=== PATIENT | male | born 1995 | race Caucasian/White ===

== ENCOUNTER 2019-06-06 13:30 | Emergency (ER) | payer OTHER ==
[~2019-06-06 13:30] MED LIST: Iopamidol-370 76% 500 ML 1 ML ONE
[2019-06-06] MEDS ORDERED: Tranexamic Acid 1,000 MG/10 ML VIAL ONE ×2 (14:48→16:42)
[2019-06-06 15:09] LABS: #Eosinphils 0.1 thou/uL (0.0-0.7); #Lymphocytes 1.6 thou/uL (1.20-3.40); #Monocytes 0.9 thou/uL (0.11-0.59); #Neutrophils 6.7 thou/uL (1.40-6.50); %Basophils 0.2 % (0.0-1.0); %Eosinophils 0.8 % (0.0-10.0); %Lymphocytes 17.6 % (21.0-51.0); %Monocytes 9.4 % (0.0-10.0); Mean Corpuscular HGB CONC 35.1 g/dL (32.0-36.0); Mean Corpuscular Volume 93.9 fL (78.0-98.0); Mean Platelet Volume 9.4 fL (7.4-10.4); Platelet Count 204 thou/uL (130-400); RBC Distribution Width 11.8 % (11.5-14.5); Red Blood Cell (RBC) Count 4.54 mill/uL (4.70-6.10); White Blood Cell (WBC) Count 9.3 thou/uL (4.8-10.8)
[2019-06-06 15:30] LABS: ALT (SGPT) 27 U/L (8-55); AST (SGOT) 18 U/L (5-34); Albumin 4.5 g/dL (3.5-5.0); Alkaline Phosphatase 79 U/L (40-110); Anion Gap 10 mmol/L (10-20); BUN (Urea Nitrogen) 14 mg/dL (8.9-20.6); Bilirubin, Total 0.9 mg/dL (0.2-1.2); Calc. Creatinine Clearance 0 mL/min (70-130); Calcium 9.5 mg/dL (7.8-10.44); Carbon Dioxide 31 mmol/L (22-29); Chloride 105 mmol/L (98-107); Estimated GFR-MDRD Greater than 90; Globulin 3.2 g/dL (2.4-3.5); Glucose 87 mg/dL (70-105); Potassium 4.4 mmol/L (3.5-5.1); Protein, Total 7.7 g/dL (6.0-8.3); Sodium 142 mmol/L (136-145)
--- NOTE | 2019-06-06 15:43 | CT ---
CT neck with IV contrast HISTORY: Throat pain. FINDINGS: Epiglottis as a normal appearance. No focal fluid collections or mass. Upper airway is martinez nt. No radiopaque foreign bodies evident. Well-circumscribed oval cyst within the right thyroid lobe, 1.1 cm. Nonspecific lymph nodes along eac h jugular chain. Salivary glands are symmetric. IMPRESSION: No abnormalities are demonstrated.
== END 2019-06-06 18:00 | disposition home or self-care (01) ==
LOC: ERS 13:30
DX: J35.8 Other chronic diseases of tonsils and adenoids (principal); F32.9 Major depressive disorder, single episode, unspecified; F17.200 Nicotine dependence, unspecified, uncomplicated; F41.9 Anxiety disorder, unspecified; Z71.6 Tobacco abuse counseling
CPT/HCPCS: 70491; 80053; 85025; 99406; Q9967

== ENCOUNTER 2020-01-09 08:42 | Outpatient (CLI) | payer BC, OTHER ==
[2020-01-10 12:20] LABS: SARS-CoV-2 MS2 Positive; SARS-CoV-2 N Gene Negative; SARS-CoV-2 S Gene Negative; SARS-CoV-2 orf1ab Negative
== END 2020-01-09 08:43 | disposition home or self-care (01) ==
LOC: LABBT 08:42
PROVIDERS: ATTEND Orthopaedic Surgery
DX: Z01.812 Encounter for preprocedural laboratory examination (principal); Z11.59 Encounter for screening for other viral diseases; S83.511A Sprain of anterior cruciate ligament of right knee, initial encounter
CPT/HCPCS: 87635; U0003

== ENCOUNTER 2020-01-13 07:22 | Observation (INO) | payer BC, OTHER ==
[2020-01-06 11:52] VITALS: BMI 24.3
[2020-01-13] MEDS ORDERED: Fentanyl 100 MCG/2 ML VIAL ONE ×3 (08:51→12:13)
[2020-01-13] MEDS ORDERED: Midazolam HCl 2 mg/2 ml Vial ONE (08:51)
[2020-01-13] MEDS ORDERED: Lidocaine 1% (PF) 30 ML VIAL ONE (08:51)
[2020-01-13] MEDS ORDERED: Acetaminophen 325 MG TAB PO PRN (09:46)
[2020-01-13] MEDS ORDERED: Promethazine HCl 25 MG/ML VIAL IM PRN (09:46)
[2020-01-13] MEDS ORDERED: Ondansetron PF 4 MG/2 ML Vial IVP PRN (09:46)
[2020-01-13] MEDS ORDERED: Zolpidem Tartrate 5 MG TAB PO PRN (09:46)
[2020-01-13] MEDS ORDERED: Ropivacaine 0.2% 550 ML 550 ML NERVE BLCK SCH (09:46)
[2020-01-13] MEDS ORDERED: Fentanyl 100 MCG/2 ML VIAL IV PRN (09:47)
[2020-01-13] MEDS ORDERED: diphenhydrAMINE 50 MG CAP PO PRN (10:56)
[2020-01-13] MEDS ORDERED: Methocarbamol 500 MG TAB PO PRN (10:56)
[2020-01-13] MEDS ORDERED: Milk Of Magnesia 30 ML UDCUP PO PRN (10:56)
[2020-01-13] MEDS ORDERED: traMADol HCl 50 MG TAB PO PRN (10:56)
[2020-01-13] MEDS ORDERED: Bisacodyl 10 MG SUPP PR PRN (10:56)
[2020-01-13] MEDS ORDERED: HYDROcodone/Acetaminophen 7.5/325 mg Tablet PO PRN ×2 (10:56)
[2020-01-13] MEDS ORDERED: Morphine 4 MG/ML VIAL SLOW IVP PRN (10:56)
[2020-01-13] MEDS ORDERED: Morphine 2 MG/ML VIAL SLOW IVP PRN (10:56)
[2020-01-13] MEDS ORDERED: PROPOFOL 200 MG/20 ML VIAL ONE (11:07)
[2020-01-13] MEDS ORDERED: Dexamethasone 20 MG/5 ML VIAL ONE (11:07)
[2020-01-13] MEDS ORDERED: Ondansetron PF 4 MG/2 ML Vial ONE (11:07)
[2020-01-13] MEDS ORDERED: Ketorolac Tromethamine 30 MG/ML VIAL ONE (11:07)
[2020-01-13] MEDS ORDERED: Lidocaine 1% PF 5 ML VIAL ONE (11:07)
[2020-01-13] MEDS ORDERED: Bupivacaine HCl 0.5%/Epinephrine 1:200,000/PF 30 ml Vial ONE (11:07)
[2020-01-13] MEDS ORDERED: EPHEDRINE 25 MG/5 ML SYRINGE ONE (11:07)
[2020-01-13] MEDS ORDERED: Ketorolac Tromethamine 30 MG/ML VIAL IVP SCH (12:00)
--- NOTE | 2020-01-13 14:48 | OP ---
DATE OF PROCEDURE: 01/13/2020 PREOPERATIVE DIAGNOSIS: Right knee anterior cruciate ligament tear. POSTOPERATIVE DIAGNOSIS: Right knee anterior cruciate ligament tear. PROCEDURES PERFORMED: 1. Right knee exam under anesthesia. 2. Right knee arthroscopy with arthroscopically-assisted anterior cruciate ligament reconstruction using an autologous patellar tendon graft. COMB WINDER: Jonatan Ruiz PA-C ESTIMATED BLOOD LOSS: Minimal. COMPLICATIONS: None. ANESTHESIA: The patient did have a general anesthetic as well as a preoperative block. IMPLANTS: To the right knee with a 7 x 25 metal interference screw, each bicortical screw with a smooth washer as a post on the tibia. DESCRIPTION OF PROCEDURE: He did go to recovery room in stable condition. INDICATIONS: A 24-year-old male who injured his knee approximately 1 month ago, found to have an ACL tear and at this time is presenting for reconstruction. DESCRIPTION OF PROCEDURE: After all appropriate consent forms were explained and signed, he was taken back to the operating room and at this site was given general anesthetic. Once the level of anesthesia was appropriate, exam under anesthesia confirmed a positive Wilfredo and a positive pivot shift. Tourniquet was placed on the right thigh. Leg was placed in an arthroscopic leg flanagan. The limb was then prepped and draped in standard surgical fashion. Limb was then exsanguinated, tourniquet taken to 250 mmHg. A midline incision was made with 10 blade down through skin. Bovie was used to coagulate any brisk venous bleeding. Paratenon was taken off the underlying patellar tendon and a central third patellar tendon graft was harvested using a double 10 blade, saw, and osteotome. Graft side was loosely closed with multiple Vicryl sutures. The graft was taken to the back table and made for each bone plug with size 10. The tendon was 50 mm in length. At this time, we then established our inferolateral portals. Scope was placed into the knee joint. Needle localization technique was then used to make a medial working portal. Diagnostic arthroscopy commenced in the notch. ACL was found to be torn. Remnant ACL was removed with the shaver at this time as well as some of the fat pad to help with visualization. The medial compartment was evaluated, found to be intact. Lateral compartment was found to be intact. Gutters were swept through and no loose bodies noted and the patellofemoral joint was also found to be in good condition. A notchplasty was then performed in standard fashion. We then flexed the knee up, and through the medial portal, using an [id number] guide, we placed a pin up and out the anterolateral thigh. A 10-mm reamer was used to ream it to 10-mm tunnel to the depth of 30 mm. All loose bony cartilaginous debris was removed from the knee joint. Tibial guide set at 55 degrees was then placed into the knee joint. A pin was placed up into the knee. A 10-mm reamer was then used to ream our tunnel. A red rasp and jarod were used to smooth off any rough edges on our tunnel. All loose bony cartilaginous debris was removed from the knee joint. At this time, we then went dry, flexed the knee up, and used the pin up and out the anterolateral thigh to pull a passing suture up into the knee joint. This was pulled down the tibial tunnel. This was used to pull our graft up into the knee. A 7 x 25 metal interference screw was then used to fixate our femoral side. We then drilled, tapped, and placed a bicortical screw with a smooth washer, tying strings around this in essentially 0 degrees of extension with the posterior drawer being applied. At this time, the knee was taken through full range of motion and was found to have 5 degrees of hyperextension and no impingement upon direct visualization of the graft through full range of motion. Scope was removed. Knee was drained. We then bone grafted our patellar and tibial defect sites. A running Vicryl was used to close our paratenon. A 2-0 Vicryl and grady were used on skin. Bulky sterile dressing was applied. Tourniquet was let down. Toes pinked up nicely. The patient was awakened, taken back to recovery room in stable condition. All counts were correct at the end of the case. He received preoperative IV antibiotics. Job ID: [id number]
[2020-01-13] MEDS: CEFAZOLIN 2 GM in Premix Bag 1 BAG IVPB SCH (17:32)
[2020-01-13] MEDS: Ketorolac Tromethamine 30 MG/ML VIAL IVP SCH ×2 (17:33→21:16)
[2020-01-13] MEDS: Dextrose 5 %-0.45 % NaCl 1,000 ML IV SCH ×2 (18:32→21:15)
[2020-01-13] MEDS: Famotidine 20 MG TAB PO SCH (21:16)
[2020-01-14] MEDS: CEFAZOLIN 2 GM in Premix Bag 1 BAG IVPB SCH (00:06)
[2020-01-14] MEDS: Ketorolac Tromethamine 30 MG/ML VIAL IVP SCH ×2 (03:04→10:29)
[2020-01-14] MEDS: Dextrose 5 %-0.45 % NaCl 1,000 ML IV SCH (06:02)
[2020-01-14 10:44] VITALS: BP 125/78; TEMP 98.2
[2020-01-14] MEDS: Famotidine 20 MG TAB PO SCH (11:22)
--- NOTE | 2020-01-16 14:51 | DIS ---
DATE OF ADMISSION: 01/13/2020 DATE OF DISCHARGE: 01/14/2020 ADMISSION DIAGNOSIS: Status post right knee anterior cruciate ligament reconstruction. COMPLICATIONS: None. DISPOSITION: To home in stable condition. BRIEF HISTORY AND HOSPITAL STAY: This is a 24-year-old male, who underwent an uncomplicated ACL reconstruction on his right knee on January 12. Postoperatively, he was observed in the hospital overnight for pain control as well as perioperative IV antibiotics. On the , the patient was found to be afebrile. Vital signs were stable. His dressing was clean, dry, and intact. He was able to be evaluated by Physical Therapy and was felt to be safe to be discharged to home. He was given instruction for dressing changes and given 4x4s and 6-inch Ravi wraps to perform the dressing changes. We will plan on seeing him in 7 to 10 days for staple removal. Until at that time, he will be touchdown weightbearing on his crutches with his brace on. If any other questions, he will call the office. Job ID: [id number]
== END 2020-01-14 11:27 | disposition home or self-care (01) ==
LOC: SDC 07:22 → SURG B 10:59
PROVIDERS: ADMIT Orthopaedic Surgery; ATTEND Orthopaedic Surgery
PROC: 0MRN47Z Replacement of Right Knee Bursa and Ligament with Autologous Tissue Substitute, Percutaneous Endoscopic Approach (ICD-10-PCS; principal; 2020-01-13)
DX: S83.511A Sprain of anterior cruciate ligament of right knee, initial encounter (principal)
CPT/HCPCS: 96365; 96375; 96376; A4306; C1713; G0378; J0670; J0690; J1100; J1885; J2001; J2250; J2405; J2704; J2795; J3010

== ENCOUNTER 2020-12-22 03:59 | Emergency (ER) | payer BC, OTHER | END 2020-12-22 04:59 | disposition home or self-care (01) | LOC: ERS 03:59 | DX: F10.129 Alcohol abuse with intoxication, unspecified (principal); F17.200 Nicotine dependence, unspecified, uncomplicated | CPT/HCPCS: 99283 ==